=== PATIENT | female | born 1955 | race Two or more races ===

== ENCOUNTER 2023-09-23 19:04 | Emergency (ER) | payer OTHER ==
[~2023-09-23] VITALS: Ht 160 cm; Wt 60.0 kg
[2023-09-23 19:55] LABS: Basophils # (auto) 0 10 ^3/uL (0-0.2); Basophils % (auto) 0.3 % (0.0-2.0); Eosinophils # (auto) 0 10 ^3/uL (0-0.8); Hematocrit 33.4 % (36.0-46.0); Hemoglobin 10.7 g/dL (12.2-16.2); Lymphocytes # (auto) 1.3 10 ^3/uL (0.4-5.4); Monocytes # (auto) 0.4 10 ^3/uL (0-1.3); White Blood Cell 5.3 10^3/uL (4.4-10.8)
[2023-09-23 19:58] LABS: Eosinophils % (auto) 0.8 % (0.0-7.0); Lymphocytes % (auto) 24.9 % (10.0-50.0); Mean Corpuscular Volume 75.1 fL (80.0-100.0); Monocytes % (auto) 7.7 % (0.0-12.0); Neutrophils # (auto) 3.5 10 ^3/uL (1.6-8.6); Neutrophils % (auto) 66.3 % (37.0-80.0); Red Blood Cells 4.45 10^6/uL (4.0-5.20); Red Cell Distribution Width 16.4 % (11.8-14.3)
[2023-09-23 20:14] LABS: Albumin 4.2 g/dL (3.2-4.8); Alkaline Phosphatase 131 U/L (46-116); Anion Gap 7 (5-15); Aspartate Aminotransferase < 8 U/L (13-40); BUN/Creatinine Ratio 12.2 (10.0-20.0); Bilirubin, Total 0.3 mg/dL (0.2-1.0); Blood Urea Nitrogen 12 mg/dL (9-23); Calcium 9.7 mg/dL (8.7-10.4); Carbon Dioxide 26 mmol/L (20-30); Chloride 101 mmol/L (98-107); Lipase 70 U/L (12-53); Potassium 3.6 mmol/L (3.5-5.1); Sodium 134 mmol/L (136-145); Total Protein 7.6 g/dL (5.7-8.2)
[2023-09-23 20:19] LABS: Lactic Acid w/Reflex 3.1 mmol/L (0.4-2.0)
[2023-09-23 20:20] LABS: Alanine Aminotransferase < 9 U/L (7-40)
[2023-09-23 20:24] LABS: Glucose 494 mg/dL (74-106)
[2023-09-23 20:26] LABS: Blood Alcohol < 3.0 mg/dL (<10)
[2023-09-23] MEDS: SODIUM CHLORIDE 0.9% 1,000 ML IV ONE (23:26)
[2023-09-23] MEDS: INSULIN LISPRO (HUMAN) 100 UNITS/ML ML SC ONE (23:26)
[2023-09-23] MEDS: AZITHROMYCIN 250 MG TAB PO ONE (23:28)
[2023-09-24 02:00] VITALS: BP 122/66; PULSE 92; RESP 18; TEMP 97.9; O2SAT 98
== END 2023-09-24 02:25 | disposition short-term general hospital (02) ==
LOC: ER 19:04 → EDBD 19:04 → ER 09-24 02:25
DX: I62.00 Nontraumatic subdural hemorrhage, unspecified (principal); I10 Essential (primary) hypertension; J18.9 Pneumonia, unspecified organism
CPT/HCPCS: 36415; 70450; 71045; 80053; 80320; 83605; 83690; 84484; 85025; 93005; 96360; 99285; J1815; J7030